=== PATIENT | male | born 1955 | race Two or more races ===

== ENCOUNTER 2022-04-11 15:40 | Inpatient (IN) | payer MEDICARE ==
[~2022-04-11] VITALS: Ht 170.2 cm; Wt 85.7 kg
--- NOTE | 2022-04-11 16:24 | NUR ---
IV ESTABLISHED L AC 20G. LABS DRAWN AND COLLECTED AT BEDSIDE
--- NOTE | 2022-04-11 16:33 | NUR ---
X RAY AT BEDSIDE
[2022-04-11 16:39] LABS: BASOPHILS % (AUTO) 0.6 % (0.0-2.0); EOSINOPHILS % (AUTO) 0.7 % (0.0-6.0); HEMATOCRIT 46 % (39-51); HEMOGLOBIN 15.2 g/dL (13.5-17.5); LYMPHOCYTES # (AUTO) 2.2 K/uL (0.8-4.8); LYMPHOCYTES % (AUTO) 33.7 % (20.0-44.0); MEAN CORPUSCULAR HGB CONC 33 g/dl (31.0-36.0); MEAN CORPUSCULAR VOLUME 88 fL (80-96); MONOCYTES # (AUTO) 0.7 K/uL (0.1-1.30); MONOCYTES % (AUTO) 11.2 % (2.0-12.0); NEUTROPHILS # (AUTO) 3.4 K/uL (1.8-8.9); NEUTROPHILS % (AUTO) 53.8 % (43.0-81.0); PLATELET COUNT (AUTO) 293 K/uL (150-450); RED BLOOD CELL COUNT(AUTO) 5.21 MIL/uL (4.5-6.0); WHITE BLOOD COUNT (AUTO) 6.4 K/uL (4.3-11.0)
--- NOTE | 2022-04-11 16:44 | NUR ---
accucheck 92
--- NOTE | 2022-04-11 16:46 | NUR ---
COVID TEST COLLECTED AND SENT
[2022-04-11 16:56] LABS: CALCIUM, SERUM 9.1 mg/dL (8.5-10.1); CARBON DIOXIDE 31 mmol/L (21-32); CHLORIDE 100 mmol/L (98-107); CREATININE 0.9 mg/dL (0.6-1.3); GLUCOSE 96 mg/dL (74-106); POTASSIUM 4.3 mmol/L (3.5-5.1); SODIUM SERUM 137 mmol/L (136-145); UREA NITROGEN, BLOOD 16 mg/dL (7-18)
[2022-04-11] MEDS ORDERED: IOHEXOL-350 100 ML VIAL IV ONE ×2 (17:05→17:15)
[2022-04-11] MEDS ORDERED: IV NS 0.9% 250 ML IV ONE ×2 (17:05→17:15)
[2022-04-11] MEDS ORDERED: ASPIRIN 81 MG TAB.CHEW PO ONE ×2 (18:00→23:00)
[2022-04-11] MEDS ORDERED: ASPI-1169 PO (18:40)
[2022-04-11] MEDS ORDERED: LOSA25TA27 PO (18:40)
[2022-04-11] MEDS ORDERED: AMLO-212 PO (18:40)
[2022-04-11] MEDS ORDERED: MAG HYDROX/AL HYDROX/SIMETH 30 ML UDC PO PRN (19:00)
[2022-04-11] MEDS ORDERED: MAGNESIUM HYDROXIDE 30 ML UDC PO PRN (19:00)
[2022-04-11] MEDS ORDERED: ZOLPIDEM TARTRATE 5 MG TABLET PO PRN (19:00)
[2022-04-11] MEDS ORDERED: Z GUARD REMEDY 4 OZ OINT TP PRN (19:00)
[2022-04-11] MEDS ORDERED: ONDANSETRON HCL/PF 4 MG/2 ML VIAL IVP PRN (19:00)
[2022-04-11] MEDS ORDERED: ACETAMINOPHEN 325 MG TABLET PO PRN (19:00)
[2022-04-11] MEDS ORDERED: SIMVASTATIN 20 MG TABLET PO SCH (22:00)
--- NOTE | 2022-04-11 23:08 | NUR ---
REPORT GIVEN TO JOSEPH ON THIRD FLOOR
--- NOTE | 2022-04-11 23:30 | NUR ---
TRANSFERRED TO THIRD FLOOR UNDER ACLS
--- NOTE | 2022-04-11 23:31 | NUR ---
RN ADMITTING NOTE PATIENT ADMITTED IN TELE UNIT FOR TIA. PATIENT IS A/O X 3 AT THIS TIME, PRIMARILY FAROESE SPEAKING, UNDERSTANDS AND SPEAKS SOME SLOVENIAN. PATIENT IS ON RA, TOLERATING WELL. NO SOB NOTED, BREATHING EVEN AND UNLABORED. PATIENT DOES NOT REPORT ANY PAIN AT THIS TIME. UPON ASSESSMENT, PATIENT DID NOT PRESENT WITH WEAKNESS ON HIS UPPER OR LOWER EXTREMITIES, NO SLURRING NOTED EITHER. SKIN INTACT, NO SKIN ISSUES NOTED. PATIENT HAS A L AC 20 G PATENT AND INTACT, FLUSHING WELL. BELONGINGS INVENTORIED. ORIENTED PATIENT TO ROOM, RN, AND FINGERPRINT TECHNICIAN. PATIENT SAFETY MEASURES IN PLACE: BED LOCKED AND IN LOWEST POSITION, CALL LIGHT WITHIN REACH, SIDE RAILS UP.
--- NOTE | 2022-04-11 23:54 | NUR ---
informed md regarding aspirin 324 mg po x 1 order. and clarified if it was to be given again, per md, do not give again.
[2022-04-12 00:45] VITALS: BP 158/87
[2022-04-12 05:16] VITALS: BP 127/77
--- NOTE | 2022-04-12 05:30 | NUR ---
[facility] SWAB COLLECTED. PLACED IN SPECIMEN FRIDGE. AWAITING LAB BOILER OPERATORS SUPERVISOR.
[2022-04-12 05:59] LABS: BASOPHILS % (AUTO) 0.6 % (0.0-2.0); HEMATOCRIT 45 % (39-51); HEMOGLOBIN 14.9 g/dL (13.5-17.5); LYMPHOCYTES # (AUTO) 2.6 K/uL (0.8-4.8); MEAN CORPUSCULAR HGB CONC 33 g/dl (31.0-36.0); MEAN CORPUSCULAR VOLUME 89 fL (80-96); MONOCYTES # (AUTO) 0.8 K/uL (0.1-1.30); MONOCYTES % (AUTO) 10.3 % (2.0-12.0); NEUTROPHILS % (AUTO) 53.1 % (43.0-81.0); PLATELET COUNT (AUTO) 289 K/uL (150-450); RED BLOOD CELL COUNT(AUTO) 5.08 MIL/uL (4.5-6.0); WHITE BLOOD COUNT (AUTO) 7.5 K/uL (4.3-11.0)
[2022-04-12 06:27] LABS: ALBUMIN 3.7 g/dL (3.4-5.0); BILIRUBIN,TOTAL 0.6 mg/dL (0.2-1.0); CALCIUM, SERUM 9.2 mg/dL (8.5-10.1); MAGNESIUM 2.3 mg/dL (1.8-2.4); POTASSIUM 3.9 mmol/L (3.5-5.1); TOTAL PROTEIN, SERUM 7.3 g/dL (6.4-8.2)
[2022-04-12 06:36] LABS: THYROID STIMULATING HORMONE 0.186 uIU/mL (0.358-3.74)
--- NOTE | 2022-04-12 06:49 | NUR ---
RN CLOSING NOTE PATIENT IN BED, AWAKE, PATIENT IS ABLE TO MAKE NEEDS KNOWN. PATIENT IS ON RA, TOLERATING WELL, NO SOB NOTED. PATIENT'S TELE MONITOR READS SR 77 BPM AT THIS TIME. PATIENT DID NOT REPORT ANY PAIN DURING THE SHIFT. NO NEURO CHANGES SINCE BEING ADMITTED TO THE UNIT. SAFETY MEASURES IN PLACE: BED LOCKED AND IN LOWEST POSITION, CALL LIGHT WITHIN REACH, SIDE RAILS UP. WILL ENDORSE TO DAY SHIFT NURSE FOR JIL.
--- NOTE | 2022-04-12 07:02 | NUR ---
CASTING HOUSE WORKER OPENING NOTES RECEIVED PATIENT SLEEPING BED, A/Ox3, ON ROOM AIR. NO S/S OF RESPIRATORY DISTRESS. ON TELE MONITORING SHOWING SINUS RHYTHM 67. NO S/S OF CARDIAC DISTRESS OR DISCOMFORT. IV ACCESS L AC #20 SL. INTACT AND PATENT, NO S/S OF INFILTRATION. PATIENT IS AMBULATORY AND HAD BATHROOM PRIVILEGE. SKIN IS INTACT. SAFETY MEASURES IN PLACE: BED LOCKED AND IN LOWEST POSITION, SIDE RAILS UP x2, HOB ELEVATED, CALL LIGHT WITHIN REACH. WILL CONTINUE TO MONITOR.
[2022-04-12] MEDS ORDERED: PANTOPRAZOLE 40 MG TABLET.DR PO SCH (07:30)
[2022-04-12 08:00] VITALS: BP 134/83
[2022-04-12 08:19] VITALS: BP 134/83
[2022-04-12] MEDS ORDERED: AMLODIPINE BESYLATE 5 MG TABLET PO SCH (09:00)
[2022-04-12] MEDS ORDERED: ASPIRIN 81 MG TAB.CHEW PO SCH (09:00)
[2022-04-12] MEDS ORDERED: LOSARTAN POTASSIUM 25 MG TABLET PO SCH (09:00)
[2022-04-12] MEDS ORDERED: ASPI-1169 PO (10:52)
[2022-04-12] MEDS ORDERED: SIMV-46 PO (10:52)
--- NOTE | 2022-04-12 13:00 | NUR ---
ENGINEERING ILLUSTRATOR NOTES PATIENT D/C HOME STABLE, A/Ox3, ABLE TO MAKE NEEDS KNOWN. STABLE ON ROOM AIR, NO S/S OF RESPIRATORY DISTRESS. NO EVIDENCE OF WEAKNESS OR SLURRED SPEECH. GAIT STEADY, NO ASSISTANCE NEEDED. HEALTH TEACHINGS AND DISCHARGE INSTRUCTIONS EXPLAINED TO PATIENT AND FAMILY. VERBALIZED UNDERSTANDING. IV ACCESS REMOVED AND PRESSURE DRESSING APPLIED, ID BAND REMOVED. SKIN INTACT. ALL FORMS SIGNED AND FILED INTO CHART. PATIENT LEFT UNIT @12:10 ACCOMPANIED BY DAUGHTER, AND TAMIKA SIMPSON. CHARGE NURSE AND MD AWARE OF DISCHARGE.
== END 2022-04-12 12:05 | disposition home or self-care (01) | DRG 69 ==
LOC: ER 15:53 → TRANSITION 22:17 → TELE 22:58
PROVIDERS: ADMIT Nurse Practitioner Acute Care; ATTEND Nurse Practitioner Acute Care
DX: G45.9 Transient cerebral ischemic attack, unspecified (principal); I10 Essential (primary) hypertension; E78.5 Hyperlipidemia, unspecified; Z79.82 Long term (current) use of aspirin; Z79.899 Other long term (current) drug therapy; E66.9 Obesity, unspecified; E03.8 Other specified hypothyroidism; Z68.29 Body mass index [BMI] 29.0-29.9, adult; R73.03 Prediabetes
CPT/HCPCS: 36415; 70496-TC; 70498-TC; 71045-TC; 80048-TC; 80053-TC; 80061-TC; 82962-TC; 83735-TC; 84100-TC; 84436-TC; 84443-TC; 84484-TC; 85025-TC; 85730-TC; 87081-TC; 93307-TC; 97112-TC; 97116-TC; 97530-TC; C9803; G0378; J2405; J7050; Q9967